=== PATIENT | female | born 1980 | race Caucasian/White ===

== ENCOUNTER 2022-05-03 15:44 | Emergency (ER) | payer OTHER ==
--- OUTSIDE RECORDS SUMMARY | 2022-05-03 15:47 | XMS REPORT | Continuity of Care Document ---
:1980 Author Organization [facility] t Address [facility] [address] Zuleta [address] [place] [id number] Care Team Providers Name Role Phone Unavailable Unavailable Unavailable Problems This patient has no known problems. Allergies, Adverse Reactions, Alerts This patient has no known allergies or adverse reactions. Medications This patient has no known medications. Procedures This patient has no known procedures. Results This patient has no known results.
--- NOTE | 2022-05-03 17:01 | RAD REPORT ---
EXAM DESCRIPTION: RAD - Femur Left - 05/03/2022 4:46 pm CLINICAL HISTORY: PAIN COMPARISON: No comparisons FINDINGS/IMPRESSION: No acute fracture. No malalignment. No significant focal degenerative changes.
--- NOTE | 2022-05-03 17:01 | RAD REPORT ---
EXAM DESCRIPTION: RAD - Hip Left 2 View - 05/03/2022 4:46 pm CLINICAL HISTORY: PAIN COMPARISON: No comparisons FINDINGS/IMPRESSION: No acute fracture. No malalignment. No significant focal degenerative changes.
--- NOTE | 2022-05-03 17:02 | RAD REPORT ---
EXAM DESCRIPTION: RAD - Chest Single View - 05/03/2022 4:46 pm CLINICAL HISTORY: rib pain COMPARISON: No comparisons FINDINGS: Lines: None. Lungs: No evidence of edema or pneumonia. Pleural: No significant pleural effusions or pneumothorax. Cardiac: The heart size is within normal limits. Mediastinum: Within normal limits. Bones: No acute fractures. Other: None IMPRESSION: No acute cardiopulmonary disease.
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
[2022-05-03 17:46] VITALS: TEMP 98.2; O2SAT 100
[2022-05-03 17:47] VITALS: BP 126/74
== END 2022-05-03 17:33 | disposition home or self-care (01) ==
LOC: ER 15:44
DX: R07.89 Other chest pain (principal); M25.552 Pain in left hip; R07.9 Chest pain, unspecified; F17.210 Nicotine dependence, cigarettes, uncomplicated
CPT/HCPCS: 71045; 99283

== ENCOUNTER 2022-05-15 12:37 | Emergency (ER) | payer SELFPAY ==
--- OUTSIDE RECORDS SUMMARY | 2022-05-15 12:40 | XMS REPORT | Continuity of Care Document ---
:1980 Author Organization [facility] t Address [address] [place] [address] Dr. Zuleta [address] [place] [address] Care Team Providers Name Role Phone Unavailable Unavailable Unavailable Problems This patient has no known problems. Allergies, Adverse Reactions, Alerts This patient has no known allergies or adverse reactions. Medications This patient has no known medications. Procedures This patient has no known procedures. Results This patient has no known results.
[2022-05-15 14:05] LABS: SARS-COV-2 RT PCR NEGATIVE (NEGATIVE)
--- NOTE | 2022-05-15 14:10 | RAD REPORT ---
EXAM DESCRIPTION: Piedad Single View05/15/2022 1:43 pm CLINICAL HISTORY: Cough COMPARISON: April 2022 FINDINGS: The lungs appear clear of acute infiltrate. The heart is normal size IMPRESSION: No acute abnormalities displayed
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
[2022-05-15] MEDS ORDERED: ACETAMINOPHEN 325 MG TABLET ONE (14:23)
[2022-05-15] MEDS ORDERED: KETOROLAC 30 MG/ML INJ ONE (14:24)
[2022-05-15] MEDS ORDERED: AMOX/K CLAV 875 MG TAB ONE (14:24)
[2022-05-15 15:15] VITALS: TEMP 100
[2022-05-15 15:26] VITALS: BP 110/74; O2SAT 100
== END 2022-05-15 14:37 | disposition home or self-care (01) ==
LOC: ER 12:37
DX: J02.0 Streptococcal pharyngitis (principal); Z20.822 Contact with and (suspected) exposure to COVID-19; Z72.0 Tobacco use
CPT/HCPCS: 0240U; 71045; 87081; 96372; 99284

== ENCOUNTER → 2023-06-23 | Emergency (ER) | payer SELFPAY ==
[~2023-06-23] MED LIST: ACTIVATED CHARCOAL 50 GM/240 ML ONE; NA CHLORIDE 0.9% 1,000 ML ONE
--- OUTSIDE RECORDS SUMMARY | 2023-06-23 19:06 | XMS REPORT | Continuity of Care Document ---
Author Name Unknown Address [address] [place] [address] [employer]connect Address [address] [place] [address] [place] [id number] Care Team Providers Care Gm Video Name Role Phone Unavailable Unavailable Unavailable
[2023-06-23 19:46] LABS: Absolute Lymphocytes (CBC) 0.6 K/uL (0.7-4.9); Hematocrit 22.9 % (36.0-45.0); Lymphocytes % 4.5 % (15.3-44.8); MCV 63.9 fL (80-100); MPV 7.2 fL (7.6-11.3); Platelets 505 thou/uL (152-406); RBC Red Blood Cell Count 3.58 M/uL (3.86-4.86)
[2023-06-23 20:00] LABS: Urine Bacteria None Seen /HPF (<20); Urine Bilirubin NEGATIVE (Negative); Urine Blood Negative (Negative); Urine Clarity Turbid (Clear); Urine Color Colorless (Yellow); Urine Glucose NEGATIVE (Negative); Urine Mucus Slight /HPF (None Seen); Urine Protein 1+ (Negative); Urine RBC <5 /HPF (None Seen); Urine Urobilinogen Normal (Normal); Urine pH 6.5 (5.0-7.0)
[2023-06-23 20:03] LABS: Protime INR 1.11
[2023-06-23 20:06] LABS: Barbiturates NEGATIVE (NEGATIVE); Benzodiazepines NEGATIVE (NEGATIVE); Cocaine POSITIVE (NEGATIVE); METHAMPHETAM NEGATIVE (NEGATIVE); Methadone NEGATIVE (NEGATIVE); Opiates NEGATIVE (NEGATIVE); Phencyclidine NEGATIVE (NEGATIVE); THC Cannibis NEGATIVE (NEGATIVE)
[2023-06-23 20:06] LABS: ALT/SGPT 13 U/L (13-56); AST/SGOT 9 U/L (15-37); Albumin 3.3 g/dL (3.4-5.0); Alkaline Phosphatase 42 U/L (45-117); BUN Blood Urea Nitrogen 8 mg/dL (7-18); Bicarbonate 22 mEq/L (21-32); Bilirubin Total 0.2 mg/dL (0.2-1.0); Glomerular Filtration Rate 87 ml/min (=/>90); Glucose Level 97 mg/dL (74-106); Potassium 3.5 mEq/L (3.5-5.1); Protein, Total 7.2 g/dL (6.4-8.2); Sodium Level 139 mEq/L (136-145)
[2023-06-23 20:09] LABS: Bilirubin Direct < 0.1 mg/dL (0-0.2); Bilirubin Indirect, Calculated ND mg/dL (0.2-0.8)
[2023-06-23 20:51] LABS: Blood Morphology Comment NOTED (NOT SEEN); Platelet Estimate ADEQ
[2023-06-23 20:52] LABS: Hypochromasia 2+; Ovalocytes 2+
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
[2023-06-23 23:40] VITALS: BP 124/82; TEMP 98.1; O2SAT 100
--- NOTE | 2023-06-25 17:02 | EKG ---
Test Date: 2023-06-23 Test Time: 19:28:09 Risk Management Director: LISA MEASUREMENT RESULTS: Intervals: Rate: 113 OR: 138 QRSD: 70 QT: 334 QTc: 458 [place]: P: 59 OR: 138 QRS: 52 T: 68 INTERPRETIVE STATEMENTS: Sinus tachycardia Otherwise normal ECG No previous ECG available for comparison Electronically Signed On 06-25-23 16:57:33 AUTOMATIC PINSETTER MECHANIC by Arian Galeas
== END ==
LOC: ER 19:04
DX: F43.0 Acute stress reaction (principal); F14.10 Cocaine abuse, uncomplicated; D50.9 Iron deficiency anemia, unspecified; R00.0 Tachycardia, unspecified
CPT/HCPCS: 36415; 80048; 80076; 80143; 80179; 80307; 81001; 81025; 82077; 85025; 85610; 85730; 93005; 99285; J7030

== ENCOUNTER 2023-12-13 13:17 | Emergency (ER) | payer SELFPAY ==
--- OUTSIDE RECORDS SUMMARY | 2023-12-13 13:19 | XMS REPORT | Continuity of Care Document ---
Author Name Unknown Address [address] [place] [address] [employer] Address [address] [place] [address] [place] [id number] Care Team Providers Care Manager Technical Training Name Role Phone Unavailable Unavailable Unavailable
[2023-12-13 13:40] LABS: Specific Gravity > 1.030 (1.005-1.030)
[2023-12-13 13:51] LABS: Specific Gravity > 1.030 (1.005-1.030); Urine Bacteria None Seen /HPF (<20); Urine Bilirubin NEGATIVE (Negative); Urine Blood Negative (Negative); Urine Clarity Extremely Turbid (Clear); Urine Color Light-Yellow (Yellow); Urine Culture Reflex Order NOT NEEDED; Urine Glucose NEGATIVE (Negative); Urine Ketones NEGATIVE (Negative); Urine Microscopic Reflex YN ORDER UMIC; Urine Mucus 1+ /HPF (None Seen); Urine Nitrite NEGATIVE (Negative); Urine Protein 1+ (Negative); Urine RBC None Seen /HPF (None Seen); Urine Urobilinogen 1+ (Normal); Urine WBC <5 /HPF (<5)
[2023-12-13 13:58] LABS: Barbiturates NEGATIVE (NEGATIVE); Benzodiazepines NEGATIVE (NEGATIVE); Cocaine POSITIVE (NEGATIVE); METHAMPHETAM NEGATIVE (NEGATIVE); Methadone NEGATIVE (NEGATIVE); Opiates NEGATIVE (NEGATIVE); Phencyclidine NEGATIVE (NEGATIVE); THC Cannibis NEGATIVE (NEGATIVE)
[2023-12-13 13:59] LABS: PT Prothrombin Time 11.6 SECONDS (9.4-12.5); PTT, Activated Partial Thromb 29.3 SECONDS (24.3-36.9); Protime INR 1.06
[2023-12-13 14:12] LABS: Albumin 3.3 g/dL (3.4-5.0); Albumin/Globulin Ratio 0.9 (1.1-1.8); Alkaline Phosphatase 40 U/L (45-117); Anion Gap 3.6 mEq/L (5.0-15.0); BUN Blood Urea Nitrogen 15 mg/dL (7-18); Bicarbonate 27 mEq/L (21-32); Bilirubin Total 0.2 mg/dL (0.2-1.0); Globulin 3.7 g/dL (2.3-3.5); Glomerular Filtration Rate 110 ml/min (=/>90); Glucose Level 102 mg/dL (74-106); Potassium 3.6 mEq/L (3.5-5.1); Sodium Level 139 mEq/L (136-145)
[2023-12-13 14:14] LABS: ALT/SGPT < 14 U/L (13-56); AST/SGOT < 10 U/L (15-37); Bilirubin Direct < 0.2 mg/dL (0-0.2)
[2023-12-13 14:36] LABS: Absolute Basophils 0.1 K/uL (0-0.5); Absolute Eosinophils 0.1 K/uL (0-0.5); Absolute Lymphocytes (CBC) 1.4 K/uL (0.7-4.9); Absolute Monocytes 0.4 K/uL (0.1-1.3); Basophils % 0.9 % (0-1.3); Eosinophils % 0.9 % (0-4.4); Hematocrit 22.5 % (36.0-45.0); Hemoglobin 6.5 g/dL (12.0-15.0); Lymphocytes % 24.2 % (15.3-44.8); MCH 17.8 pg (27.0-35.0); MCHC 28.7 g/dL (32.0-36.0); MPV 8.6 fL (7.6-11.3); Monocytes % 7.3 % (3.3-12.3); Neutrophils % 66.7 % (41.7-73.7); Nucleated Red Blood Cells % 0.2 % (0-0); Platelets 333 thou/uL (152-406); RBC Red Blood Cell Count 3.62 M/uL (3.86-4.86); Red Cell Distribution Width 19.2 % (12.1-15.2)
[2023-12-13 15:08] LABS: Band Neutrophils 1 % (0-1); Differential Total Cells Count 100; Eosinophils 2 % (0-3); Lymphocytes 25 % (15-42); Monocytes 4 % (0-10); Segmented Neutrophils 67 % (40-80)
[2023-12-13 15:09] LABS: Anisocytosis 1+; Blood Morphology Comment NOTED (NOT SEEN); Hypochromasia 2+; Microcytosis 2+; Platelet Estimate ADEQ; Polychromasia 1+
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
[2023-12-13 16:25] VITALS: BP 109/77; TEMP 98; O2SAT 99
--- NOTE | 2023-12-14 11:13 | EKG ---
Test Date: 2023-12-13 Test Time: 13:37:58 Marketing Planner: Catrina MONACO MEASUREMENT RESULTS: Intervals: Rate: 76 SC: 128 QRSD: 70 QT: 390 QTc: 438 [place]: P: 8 SC: 128 QRS: 62 T: 68 INTERPRETIVE STATEMENTS: Normal sinus rhythm Normal ECG Compared to ECG 06/23/2023 19:28:09 Sinus tachycardia no longer present Electronically Signed On 12-14-23 11:11:56 CDT by Ramone Toth
== END 2023-12-13 16:06 | disposition home or self-care (01) ==
LOC: ER 13:17
DX: T45.0X1A Poisoning by antiallergic and antiemetic drugs, accidental (unintentional), initial encounter (principal); Z59.00 Homelessness unspecified
CPT/HCPCS: 36415; 80048; 80076; 80143; 80179; 80307; 81001; 81025; 82077; 85025; 85610; 85730; 93005; 99285